=== PATIENT | female | born 1965 ===

== ENCOUNTER 2017-10-09 14:14 | Emergency (ER) | payer OTHER ==
[2017-10-09 14:27] VITALS: BP 127/67; PULSE 77; RESP 18; TEMP 98.1; O2SAT 99
--- NOTE | 2017-10-09 14:56 | ED PDOC ---
HPI: Skin/Bite Injury Time Seen by Provider: 10/09/17 14:28 Chief Complaint (Nursing): Trauma Chief Complaint (Provider): rash to thigh History Per: Patient, Secretary Bookkeeper (Pegger Sepideh # [id number]) History/Exam Limitations: no limitations Onset/Duration Of Symptoms: Days (x 3) Current Symptoms Are (Timing): Still Present Quality Of Symptoms: Painful Additional Complaint(s): Kassidy Huitron is a 52-year-old female who presents to the emergency department complaining of a rash to her left upper thigh for 3 days. She describes the rash as a painful burning sensation. No fever or chills. Patient denies any recent travel. PMD: [facility] Past Medical History Reviewed: Historical Data, Nursing Documentation, Vital Signs Vital Signs: Last Vital Signs Temp 98.1 F 10/09/17 14:24 Pulse 77 10/09/17 14:24 Resp 18 10/09/17 14:24 BP 127/67 10/09/17 14:24 Pulse Ox 99 10/09/17 15:10 - Medical History PMH: Diabetes, HTN, Hyperlipidemia - Family History Family History: States: No Known Family Hx - Living Arrangements Living Arrangements: With Family - Social History Current smoker - smoking cessation education provided: No Alcohol: None Drugs: Denies - Home Medications Home Medications: Ambulatory Orders Medication Instructions Recorded Ibuprofen [Motrin Tab] 800 mg PO Q8 PRN #20 tab 10/09/17 valACYclovir [Valtrex] 1 gm PO TID #21 tab 10/09/17 - Allergies Allergies/Adverse Reactions: Allergies Allergy/AdvReac Type Severity Reaction Status Date / Time No Known Allergies Allergy Verified 10/09/17 14:23 Review of Systems ROS Statement: Except As Marked, All Systems Reviewed And Found Negative Constitutional: Negative for: Fever, Chills Skin: Positive for: Rash (to left thigh) Physical Exam - Reviewed Nursing Documentation Reviewed: Yes Vital Signs Reviewed: Yes - Physical Exam Appears: Positive for: Well, Non-toxic, No Acute Distress Head Exam: Positive for: ATRAUMATIC, NORMAL INSPECTION, NORMOCEPHALIC Skin: Positive for: Rash (Vesicular rash to the left anterior thigh consistent with herpes zoster) Eye Exam: Positive for: Normal appearance Respiratory: Negative for: Respiratory Distress Neurologic/Psych: Positive for: Alert, Oriented - ECG O2 Sat by Pulse Oximetry: 99 (RA) Pulse Ox Interpretation: Normal Medical Decision Making Medical Decision Making: Time: 14:46 Impression: 52 year old female with shingles Plan: Patient is medially stable and will be discharged home with Rx for Ibuprofen and Valtrex. Advised to follow up with the clinic in 2-3 days. There is agreement to discharge plan. Return if symptoms persist or worsen. Scribe Attestation: Documented by Eleanor Mujica, acting as a scribe for Effie Landa PA-C Provider Scribe Attestation: All medical record entries made by the Scribe were at my direction and personally dictated by me. I have reviewed the chart and agree that the record accurately reflects my personal performance of the history, physical exam, medical decision making, and the department course for this patient. I have also personally directed, reviewed, and agree with the discharge instructions and disposition. Disposition - Clinical Impression Clinical Impression: Shingles - Patient ED Disposition Is Patient to be Admitted: No Counseled Patient/Family Regarding: Diagnosis, Need For Followup, Rx Given - Disposition Referrals: [facility] [Outside] Disposition: Routine/Home Disposition Time: 14:56 Condition: STABLE Additional Instructions: Take prescription medications as directed. Do not apply any topical creams. Follow up with clinic in 2-3 days. Prescriptions: Ibuprofen [Motrin Tab] 800 mg PO Q8 PRN #20 tab PRN Reason: Pain, Moderate (4-7) valACYclovir [Valtrex] 1 gm PO TID #21 tab Instructions: Shingles (ED) Forms: [employer] (Lithuanian) Print Language: SLOVAK
== END 2017-10-09 15:11 | disposition home or self-care (01) ==
LOC: H.ER 14:14
DX: B02.9 Zoster without complications (principal); E11.9 Type 2 diabetes mellitus without complications; E78.5 Hyperlipidemia, unspecified; I10 Essential (primary) hypertension

== ENCOUNTER 2017-10-10 10:26 | Emergency (ER) | payer OTHER ==
[2017-10-10 10:30] VITALS: BMI 42.4
[2017-10-10 10:31] VITALS: BP 135/72; PULSE 67; RESP 17; TEMP 98.5; O2SAT 99
--- NOTE | 2017-10-10 13:15 | ED PDOC ---
HPI: Female Pain Time Seen by Provider: 10/10/17 10:32 Chief Complaint (Nursing): Abnormal Skin Integrity Chief Complaint (Provider): vaginal pain History Per: Patient History/Exam Limitations: no limitations Onset/Duration Of Symptoms: Days (x2) Current Symptoms Are (Timing): Still Present Additional Complaint(s): 52 year old female who presents to the emergency department with a complaint of vaginal burning ongoing since last night. Denied any fever, chills, vaginal discharge or painful urination. Patient was seen in ED yesterday for shingles on her right thigh and currently taking prescribed Valtrex in which she reported improvement with pain today. PMD: none provided Past Medical History Reviewed: Historical Data, Nursing Documentation, Vital Signs Vital Signs: Last Vital Signs Temp 98.5 F 10/10/17 10:30 Pulse 67 10/10/17 10:30 Resp 17 10/10/17 10:30 BP 135/72 10/10/17 10:30 Pulse Ox 99 10/10/17 10:30 - Medical History PMH: Diabetes, HTN, Hyperlipidemia - Surgical History Surgical History: No Surg Hx - Family History Family History: States: Unknown Family Hx - Social History Current smoker - smoking cessation education provided: No Alcohol: None Drugs: Denies - Home Medications Home Medications: Ambulatory Orders Medication Instructions Recorded Ibuprofen [Motrin Tab] 800 mg PO Q8 PRN #20 tab 10/09/17 valACYclovir [Valtrex] 1 gm PO TID #21 tab 10/09/17 Fluconazole [Diflucan] 100 mg PO ONCE #1 tab 10/10/17 - Allergies Allergies/Adverse Reactions: Allergies Allergy/AdvReac Type Severity Reaction Status Date / Time No Known Allergies Allergy Verified 10/09/17 14:23 Review of Systems ROS Statement: Except As Marked, All Systems Reviewed And Found Negative Constitutional: Negative for: Fever, Chills Genitourinary Female: Positive for: Pelvic Pain (vaginal burning sensation), Rash (left thigh). Negative for: Dysuria, Vaginal Discharge Physical Exam - Reviewed Nursing Documentation Reviewed: Yes Vital Signs Reviewed: Yes - Physical Exam Appears: Positive for: Well, Non-toxic, No Acute Distress Pelvic Exam: Positive for: Other (erythematous labia minora and majora ). Negative for: External Exam Normal, Discharge (vaginal) Neurologic/Psych: Positive for: Alert, Oriented - ECG O2 Sat by Pulse Oximetry: 99 (RA) Pulse Ox Interpretation: Normal Medical Decision Making Medical Decision Making: Initial Impression: Vaginal pain; shingles Initial Plan: * Urine * Urine dipstick * Chlamydia/GC Time: 1227 --UA: negative for or infection Scribe Attestation: Documented by Halie Harry, acting as a scribe for Rossy Adams PA-C. Provider Scribe Attestation: All medical record entries made by the Scribe were at my direction and personally dictated by me. I have reviewed the chart and agree that the record accurately reflects my personal performance of the history, physical exam, medical decision making, and the department course for this patient. I have also personally directed, reviewed, and agree with the discharge instructions and disposition. Disposition - Clinical Impression Clinical Impression: Vulvovaginitis - Disposition Condition: STABLE Prescriptions: Fluconazole [Diflucan] 100 mg PO ONCE #1 tab Instructions: Vulvovaginal Candidiasis (ED) Forms: [employer] (Albanian) Print Language: HUNGARIAN
== END 2017-10-10 13:24 | disposition home or self-care (01) ==
LOC: H.ER 10:26
DX: N76.0 Acute vaginitis (principal); B02.9 Zoster without complications; E11.9 Type 2 diabetes mellitus without complications; E78.5 Hyperlipidemia, unspecified; I10 Essential (primary) hypertension

== ENCOUNTER 2017-12-10 11:26 | Emergency (ER) | payer OTHER ==
[2017-12-10 11:26] VITALS: BMI 42.4
[2017-12-10 12:03] VITALS: BP 131/69; PULSE 83; RESP 18; TEMP 98.5; O2SAT 98
--- NOTE | 2017-12-10 12:41 | ED PDOC ---
HPI: Back Time Seen by Provider: 12/10/17 12:22 Chief Complaint (Nursing): Back Pain Chief Complaint (Provider): Back Pain History Per: Patient History/Exam Limitations: no limitations Onset/Duration Of Symptoms: Days (x6) Current Symptoms Are (Timing): Still Present Quality Of Discomfort: Other ("hot") Associated Symptoms: None Additional Complaint(s): 52 year old female presents to ED with complaints of atraumatic, lower back pain x6 days (R> L) and has a past medical history of diabetes mellitus ( compliant with medications) and HTN. (-) urinary symptoms, incontinence, saddle anesthesia, bowel or bladder dysfunction, fever, recent weight loss, SOB, cough , chest pain, nausea, vomiting, or abdominal pain. Patient also notes the pain worsens with movement and is described as "hot". Patient denies taking any medication for the pain. States that her LMP was 2 weeks ago. [employer] #:[id number] PCP: None - Risk Factors AAA Risk Factors: Pos: Older Than 49 Years Of Age, Hypertension Past Medical History Reviewed: Historical Data, Nursing Documentation, Vital Signs Vital Signs: Last Vital Signs Temp 98.5 F 12/10/17 12:01 Pulse 83 12/10/17 12:01 Resp 18 12/10/17 12:01 BP 131/69 12/10/17 12:01 Pulse Ox 98 12/10/17 12:01 - Medical History PMH: Diabetes, HTN, Hyperlipidemia Denies: Kidney Stones - Family History Family History: States: Unknown Family Hx - Living Arrangements Living Arrangements: With Family - Social History Current smoker - smoking cessation education provided: No Ex-Smoker (has not smoked in the last 12 months): No Alcohol: None Drugs: Denies - Home Medications Home Medications: Ambulatory Orders Medication Instructions Recorded Ibuprofen [Motrin Tab] 800 mg PO Q8 PRN #20 tab 10/09/17 valACYclovir [Valtrex] 1 gm PO TID #21 tab 10/09/17 Fluconazole [Diflucan] 100 mg PO ONCE #1 tab 10/10/17 Meloxicam [Mobic] 15 mg PO DAILY PRN #10 tab 12/10/17 - Allergies Allergies/Adverse Reactions: Allergies Allergy/AdvReac Type Severity Reaction Status Date / Time No Known Allergies Allergy Verified 12/10/17 12:00 Review of Systems ROS Statement: Except As Marked, All Systems Reviewed And Found Negative Cardiovascular: Negative for: Chest Pain Respiratory: Negative for: Cough, Shortness of Breath Gastrointestinal: Negative for: Abdominal Pain Genitourinary Female: Negative for: Dysuria, Hematuria Musculoskeletal: Positive for: Back Pain, Other ((+) bilateral flank pain, right > left) Physical Exam - Reviewed Nursing Documentation Reviewed: Yes Vital Signs Reviewed: Yes - Physical Exam Appears: Positive for: Well, Non-toxic, No Acute Distress Head Exam: Positive for: NORMOCEPHALIC Skin: Positive for: Normal Color, Warm, Dry Eye Exam: Positive for: EOMI Neck: Positive for: Painless ROM, Supple Cardiovascular/Chest: Positive for: Regular Rate, Rhythm. Negative for: Murmur Respiratory: Positive for: Normal Breath Sounds. Negative for: Decreased Breath Sounds, Respiratory Distress Gastrointestinal/Abdominal: Positive for: Bowel Sounds (active x4), Soft. Negative for: Tenderness, Mass, Distended, Guarding Back: Positive for: R CVA Tenderness (questionable), Muscle Spasm (right paralumbar), Other ((+) right paralumbar and parathoracic tenderness. (-) midline tenderness). Negative for: Vertebral Tenderness Extremity: Positive for: Normal ROM. Negative for: Tenderness, Deformity Neurologic/Psych: Positive for: Alert, Oriented, Mood/Affect (appropriate), Gait (steady). Negative for: Motor/Sensory Deficits - Laboratory Results Urine dip results: Positive for: Blood (small) - ECG O2 Sat by Pulse Oximetry: 98 (RA) Pulse Ox Interpretation: Normal Medical Decision Making Medical Decision Makin Initial impression: muscular back pain, muscle spasm Initial plan: * UPreg * Flexeril 10mg PO * Toradol 30mg IM * Ultram 50mg PO * UCx * UA * Re-eval Patient states she is not driving home. 1426 Upon re-evaluation patient states she feels much better. Patient ambulating in ED with steady, unassisted gait. Patient is stable for discharge and will follow with [facility] in 1-2 days. Prescription for Mobic given. Scribe Attestation: Documented by Michaela Sanders, acting as a scribe for Haley Rodgers PA-C. Provider Scribe Attestation: All medical record entries made by the Scribe were at my direction and personally dictated by me. I have reviewed the chart and agree that the record accurately reflects my personal performance of the history, physical exam, medical decision making, and the department course for this patient. I have also personally directed, reviewed, and agree with the discharge instructions and disposition. Disposition - Clinical Impression Clinical Impression: Acute back pain, Muscle spasm of back - Disposition Disposition: Routine/Home Disposition Time: 14:26 Condition: IMPROVED Prescriptions: Meloxicam [Mobic] 15 mg PO DAILY PRN #10 tab PRN Reason: Pain, Moderate (4-7) Instructions: Muscle Spasm (ED), Back Pain (ED), Back Exercises (ED) Forms: [employer] (Moroccan), [employer] (Azeri) Print Language: LUXEMBOURGISH
[2017-12-10 13:19] LABS: SQUAMOUS EPITHIAL 1 /hpf (0-5); URINE BILIRUBIN NEGATIVE (NEGATIVE); URINE BLOOD SMALL (NEGATIVE); URINE CLARITY CLEAR (Clear); URINE COLOR YELLOW (YELLOW); URINE GLUCOSE (UA) 50 mg/dL (Normal); URINE LEUKOCYTE ESTERASE NEG Leu/uL (Negative); URINE NITRATE NEGATIVE (NEGATIVE); URINE PROTEIN NEGATIVE (NEGATIVE); URINE UROBILINOGEN 0.2-1.0 mg/dL (0.2-1.0)
== END 2017-12-10 14:48 | disposition home or self-care (01) ==
LOC: H.ER 11:26
DX: M62.830 Muscle spasm of back (principal); E11.9 Type 2 diabetes mellitus without complications; E78.5 Hyperlipidemia, unspecified; I10 Essential (primary) hypertension
CPT/HCPCS: 81003; 81025; 87086; 96372; 99282; J1885

== ENCOUNTER 2017-12-30 10:20 | Emergency (ER) | payer OTHER ==
--- NOTE | 2017-12-30 11:09 | ED PDOC ---
HPI: Female Pain Time Seen by Provider: 12/30/17 10:57 Chief Complaint (Nursing): Female Genitourinary Chief Complaint (Provider): Dysuria History Per: Patient History/Exam Limitations: no limitations Onset/Duration Of Symptoms: Days (x2) Current Symptoms Are (Timing): Still Present Associated Symptoms: denies: Fever, Nausea, Vomiting, Back Pain Additional Complaint(s): Kassidy Ramos is a 52 year old female with a past medical history of diabetes, who presents to the ED with complains of dysuria with associated suprapubic pain, onset two days ago. Patient denies fever, chills, nausea, vomiting, and back pain. Patient offers no other medical complaints at this time. PMD: non [facility] provider Past Medical History Reviewed: Historical Data, Nursing Documentation, Vital Signs Vital Signs: Last Vital Signs Temp 97 F L 12/30/17 10:57 Pulse 105 H 12/30/17 10:57 Resp 16 12/30/17 10:57 BP 124/74 12/30/17 10:57 Pulse Ox 98 12/30/17 10:57 - Medical History PMH: Diabetes - Surgical History Surgical History: No Surg Hx - Family History Family History: States: Unknown Family Hx - Home Medications Home Medications: Ambulatory Orders Medication Instructions Recorded Sulfamethoxazole/Trimethoprim 1 tab PO BID #20 tab 12/30/17 [Bactrim DS 800 mg-160 mg] - Allergies Allergies/Adverse Reactions: Allergies Allergy/AdvReac Type Severity Reaction Status Date / Time No Known Allergies Allergy Verified 12/30/17 11:02 Review of Systems ROS Statement: Except As Marked, All Systems Reviewed And Found Negative Constitutional: Negative for: Fever, Chills Gastrointestinal: Negative for: Nausea, Vomiting Genitourinary Female: Positive for: Dysuria Musculoskeletal: Negative for: Back Pain Physical Exam - Reviewed Nursing Documentation Reviewed: Yes Vital Signs Reviewed: Yes - Physical Exam Appears: Positive for: Non-toxic, No Acute Distress Head Exam: Positive for: ATRAUMATIC, NORMAL INSPECTION, NORMOCEPHALIC Skin: Positive for: Normal Color Eye Exam: Positive for: Normal appearance Neck: Positive for: Normal Gastrointestinal/Abdominal: Positive for: Normal Exam, Soft, Tenderness (mild suprapubic tenderness) Back: Positive for: Normal Inspection. Negative for: L CVA Tenderness, R CVA Tenderness, Vertebral Tenderness Extremity: Positive for: Normal ROM. Negative for: Deformity, Swelling Neurologic/Psych: Positive for: Alert, Oriented - ECG O2 Sat by Pulse Oximetry: 98 (RA) Pulse Ox Interpretation: Normal Medical Decision Making Medical Decision Making: Time: 11:05 Plan: --ED Urine Dipstick --ED Urine --Urine Culture Scribe Attestation: Documented by Penny Merida, acting as a scribe for Lei Mason MD. Provider Scribe Attestation: All medical record entries made by the Scribe were at my direction and personally dictated by me. I have reviewed the chart and agree that the record accurately reflects my personal performance of the history, physical exam, medical decision making, and the department course for this patient. I have also personally directed, reviewed, and agree with the discharge instructions and disposition. Disposition - Clinical Impression Clinical Impression: Urinary tract infection - Patient ED Disposition Is Patient to be Admitted: No Counseled Patient/Family Regarding: Studies Performed, Diagnosis, Need For Followup, Rx Given - Disposition Referrals: [facility] [Outside] Disposition: Routine/Home Disposition Time: 11:25 Condition: FAIR Prescriptions: Sulfamethoxazole/Trimethoprim [Bactrim DS 800 mg-160 mg] 1 tab PO BID #20 tab Instructions: Urinary Tract Infections in Adults Forms: [id number] (Persian)
[2017-12-30 12:12] VITALS: BP 124/75; PULSE 81; RESP 14; TEMP 98; O2SAT 99
== END 2017-12-30 12:10 | disposition home or self-care (01) ==
LOC: MERGE 10:20 → H.ER 10:20
DX: N39.0 Urinary tract infection, site not specified (principal)